=== PATIENT | female | born 1975 | race Two or more races ===

== ENCOUNTER 2021-07-04 06:24 | Day surgery (SDC) | payer OTHER ==
[2021-07-04] MEDS ORDERED: MORGIDOX100 MG PO (10:59)
[2021-07-04] MEDS ORDERED: NAPR500T14 PO (10:59)
== END 2021-07-04 14:00 | disposition home or self-care (01) ==
LOC: CIR.AMB 06:24
PROVIDERS: ATTEND Obstetrics & Gynecology
DX: D25.0 Submucous leiomyoma of uterus (principal); Z20.822 Contact with and (suspected) exposure to COVID-19; Z88.8 Allergy status to other drugs, medicaments and biological substances; E78.5 Hyperlipidemia, unspecified; E11.9 Type 2 diabetes mellitus without complications